=== PATIENT | female | born 1955 | race Caucasian/White ===

== ENCOUNTER → 2016-07-25 | Outpatient (CLI) | payer OTHER ==
[2015-03-24 18:00] VITALS: BP 126/71
[~2016-07-25] MED LIST: CALC-52 PO; LACT1CAP8 PO; LEVO150T PO; LUTE1CAP3 PO; MONT10TA6 PO; PROP120C3 PO; SERT100T PO
--- NOTE | 2016-07-25 12:12 | RAD ---
Renal ultrasound, 07/25/2016: History: Renal calculi with renal colic The right kidney measures 9.9 cm in length while the left kidney measures 11.6 cm there is no evidence of hydronephrosis. There is a small hyperechoic focus in the lateral aspect of left kidney measuring approximately 6 mm. This probably corresponds to the apparent tiny angiomyolipoma seen in the left kidney on the 05/05/2015 CT study. The renal parenchymal echogenicity is otherwise within normal limits. No definite renal calculi are seen. The bladder was not adequately visualized due to the patient having recently voided. IMPRESSION: 1. 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 2. The kidneys are otherwise unremarkable.
--- NOTE | 2016-07-25 12:36 | RAD ---
KUB, 07/25/2016: History: Hematuria There is a large amount of stool scattered throughout the colon. The abdominal gas pattern is otherwise unremarkable. The renal regions are obscured by this bowel content. The right renal region opacity seen on 12/01/2015 is not currently visible. Numerous lower pelvic calcifications are probably phleboliths. There is no evidence of organomegaly. IMPRESSION: 1. Increased stool throughout the colon. 2. The abdomen is otherwise unremarkable.
== END | disposition home or self-care (01) ==
LOC: RAD 12:55
PROVIDERS: ATTEND Urology
DX: N20.0 Calculus of kidney (principal); R31.9 Hematuria, unspecified
CPT/HCPCS: 74000; 76770

== ENCOUNTER 2016-10-28 09:53 | Emergency (ER) | payer OTHER ==
[2016-10-28 09:59] VITALS: BP 138/64
[2016-10-28 10:20] LABS: BILIRUBIN,URINE NEGATIVE (NEG); GLUCOSE,URINE NEGATIVE (NEG); NITRITE,URINE NEGATIVE (NEG); PH,URINE 6.5; PROTEIN,URINE NEGATIVE (NEG-TRACE); UROBILINOGEN,URINE 0.2 mg/dL (0.2 mg/dL)
--- NOTE | 2016-10-28 10:22 | PHYS DOC ---
Past Medical History Past Medical History: Arthritis, Hypothyroid, Kidney Stone Past Surgical History: Hysterectomy Additional Past Surgical Histo: thyroidectomy, perirectal abcess Alcohol Use: None Drug Use: None Adult General Chief Complaint Chief Complaint: OTHER COMPLAINTS [facility] HPI Patient is a 61 year old female presents emergency department stating that she is having urinary frequency and incontinence of urine for the last few days. She states the last time this occurred was after she had passed kidney stones. Patient states she started herself on Cipro in which she only had approximately 2-3 days worth. She denies fever, chills or any nausea or vomiting. Patient denies any abdominal pain or discomfort. Review of Systems Review of Systems Constitutional: Denies fever or chills [] Eyes: Denies change in visual acuity, redness, or eye pain [] HENT: Denies nasal congestion or sore throat [] Respiratory: Denies cough or shortness of breath [] Cardiovascular: No additional information not addressed in HPI [] GI: Denies abdominal pain, nausea, vomiting, bloody stools or diarrhea [] : dysuria denies hematuria [] Musculoskeletal: Denies back pain or joint pain [] Integument: Denies rash or skin lesions [] Neurologic: Denies headache, focal weakness or sensory changes [] Endocrine: Denies polyuria or polydipsia [] Allergies Allergies Allergies Coded Allergies Type Severity Reaction Last Updated Verified butorphanol Allergy Intermediate HALLUCINATIONS 11/20/13 Yes hydrocodone Allergy Intermediate Rash 03/24/15 Yes misoprostol Allergy Intermediate Unknown 11/20/13 Yes Physical Exam Physical Exam Constitutional: Well developed, well nourished, no acute distress, non-toxic appearance. [] HENT: Normocephalic, atraumatic, bilateral external ears normal, oropharynx moist, no oral exudates, nose normal. [] Eyes: PERRLA, EOMI, conjunctiva normal, no discharge. [] Neck: Normal range of motion, no tenderness, supple, no stridor. [] Cardiovascular:Heart rate regular rhythm, no murmur [] Lungs & Thorax: Bilateral breath sounds clear to auscultation [] Abdomen: Bowel sounds normal, soft, no tenderness, no masses, no pulsatile masses. [] Skin: Warm, dry, no erythema, no rash. [] Back: No tenderness, no CVA tenderness. [] Extremities: No tenderness, no cyanosis, no clubbing, ROM intact, no edema. [] Neurologic: Alert and oriented X 3, normal motor function, normal sensory function, no focal deficits noted. [] Psychologic: Affect normal, judgement normal, mood normal. [] Current Patient Data Vital Signs Vital Signs Date Time Temp Pulse Resp B/P (MAP) Pulse Ox O2 Delivery O2 Flow Rate FiO2 10/28/16 09:59 97.8 62 18 97 Room Air 97.8 Lab Values Laboratory Tests Test 10/28/16 10:00 Urine Collection Type Unknown Urine Color Yellow Urine Clarity Clear Urine pH 6.5 Urine Specific [place] 1.015 Urine Protein Negative mg/dL (NEG-TRACE) Urine Glucose (UA) Negative mg/dL (NEG) Urine Ketones (Stick) Negative mg/dL (NEG) Urine Blood Negative (NEG) Urine Nitrite Negative (NEG) Urine Bilirubin Negative (NEG) Urine Urobilinogen Dipstick 0.2 mg/dL (0.2 mg/dL) Urine Leukocyte Esterase Small (NEG) Urine RBC 0 /HPF (0-2) Urine WBC 0 /HPF (0-4) Urine Squamous Epithelial Cells Few /LPF Urine Bacteria 0 /HPF (0-FEW) EKG EKG [] Radiology/Procedures Radiology/Procedures [] Course & Med Decision Making Course & Med Decision Making Pertinent Labs and Imaging studies reviewed. (See chart for details) Patient's urine was positive for leukocyte Estrace. Patient has however started on Cipro will continue with the Cipro for the next 5 days. We'll recommend that she follow up with urology due to incontinent of urine. Recommended plenty of fluids such as water and cranberry juice. Avoid cranberry juice cocktail carbonate beverages citrus fruits and alcohol sees her considered irritants to the bladder. Patient will be discharged home in stable condition signs and symptoms to return back to emergency department been provided. [] Dragon Disclaimer Dragon Disclaimer This electronic medical record was generated, in whole or in part, using a voice recognition dictation system. Departure Departure Impression: Primary Impression: Urinary frequency Additional Impression: Incontinence in female Disposition: 01 HOME, SELF-CARE Condition: STABLE Referrals: TAWANA COOMBS MD (PCP) Patient Instructions: Urinary Frequency, Urinary Incontinence-Brief Additional Instructions: Activity as tolerated Medication as prescribed Drink plenty of fluids such as water and cranberry juice Avoid cranberry juice cocktail, carbonated beverages, citrus fruits, caffeine and alcohol as these are considered irritants to the bladder. Followup with urology in 3-5 days Return to emergency department as needed for signs and symptoms that become worse. Scripts Ciprofloxacin Hcl (CIPRO) 500 Mg Tablet 1 TAB PO BID, #10 TAB Prov: MODESTO ZABALA APRN 10/28/16 Problem Qualifiers MODESTO ZABALA APRN Oct 28, 2016 10:21
[2016-10-28 10:36] LABS: BACTERIA,URINE 0 /HPF (0-FEW); RBC,URINE 0 /HPF (0-2); SQUAMOUS EPITHELIAL CELL,UR FEW /LPF; WBC,URINE 0 /HPF (0-4)
[2016-10-28] MEDS ORDERED: CIPR500T94 PO (10:44)
== END 2016-10-28 10:50 | disposition home or self-care (01) ==
LOC: ER 09:53
DX: R35.0 Frequency of micturition (principal); R32 Unspecified urinary incontinence; E03.9 Hypothyroidism, unspecified; Z87.442 Personal history of urinary calculi; Z88.5 Allergy status to narcotic agent; Z88.8 Allergy status to other drugs, medicaments and biological substances
CPT/HCPCS: 81001; 87086; 99284

== ENCOUNTER → 2017-01-17 | Outpatient (CLI) | payer OTHER ==
[~2017-01-17] MED LIST changes: +CIPR500T94 PO
[2017-01-17 09:30] LABS: ALBUMIN 3.6 g/dL (3.4-5.0); CALCIUM 9.3 mg/dL (8.5-10.1); CREATININE 0.9 mg/dL (0.6-1.0); GFR 63.7; POTASSIUM 4.3 mmol/L (3.5-5.1); TOTAL BILIRUBIN 0.5 mg/dL (0.2-1.0); TOTAL PROTEIN 7.3 g/dL (6.4-8.2)
[2017-01-17 09:31] LABS: CHOLESTEROL/HDL RATIO 3.3
== END | disposition home or self-care (01) ==
LOC: LAB 08:57
PROVIDERS: ATTEND Family Medicine
DX: E03.8 Other specified hypothyroidism (principal); E78.5 Hyperlipidemia, unspecified; R73.01 Impaired fasting glucose
CPT/HCPCS: 36415; 80053; 80061; 83036; 84443

== ENCOUNTER → 2017-04-02 | Outpatient (CLI) | payer OTHER | END | disposition home or self-care (01) | LOC: MRI 08:18 | DX: M65.4 Radial styloid tenosynovitis [de Quervain] (principal); M25.532 Pain in left wrist | CPT/HCPCS: 73221 ==

== ENCOUNTER → 2017-04-05 | Outpatient (CLI) | payer OTHER | END | disposition home or self-care (01) | LOC: KCIC MAMMO 08:21 | DX: Z12.31 Encounter for screening mammogram for malignant neoplasm of breast (principal) | CPT/HCPCS: 77063; 77067 ==

== ENCOUNTER → 2017-06-24 | Outpatient (CLI) | payer OTHER | END | disposition home or self-care (01) | LOC: US 15:29 | DX: E06.3 Autoimmune thyroiditis (principal) | CPT/HCPCS: 76536 ==

== ENCOUNTER → 2017-07-01 | Outpatient (CLI) | payer OTHER ==
[2017-07-01 18:34] LABS: THYROID STIM HORMONE (TSH) 0.265 uIU/mL (0.358-3.74)
[2017-07-02 11:30] LABS: FREE T4 1.47 ng/dL (0.76-1.46)
== END | disposition home or self-care (01) ==
LOC: LAB 13:57
DX: E03.9 Hypothyroidism, unspecified (principal)
CPT/HCPCS: 36415; 84439; 84443

== ENCOUNTER → 2017-08-01 | Outpatient (CLI) | payer OTHER ==
[2017-08-02 13:04] LABS: MICROALBUMIN, RANDOM URINE 16.4 ug/mL (Not Estab.)
== END | disposition home or self-care (01) ==
LOC: LAB 09:29
DX: E11.9 Type 2 diabetes mellitus without complications (principal); E78.5 Hyperlipidemia, unspecified; E03.9 Hypothyroidism, unspecified
CPT/HCPCS: 82043

== ENCOUNTER → 2017-10-25 | Day surgery (SDC) | payer OTHER ==
[~2017-10-25] MED LIST changes: -CALC-52 PO; -CIPR500T94 PO; -LACT1CAP8 PO; -LEVO150T PO; +LIDOCAINE 1% PF 2 ML VIAL. ID; +LIDOCAINE 2% PF Vial for OR 5 ML VIAL.; -LUTE1CAP3 PO; -MONT10TA6 PO; +PROCHLORPERAZINE 10 MG/2 ML VIAL. IV; -PROP120C3 PO; +PROPOFOL 40 ML IV; -SERT100T PO; +fentaNYL PF VIAL 100 MCG/2 ML VIAL IV
[2017-10-25] MEDS: IV RINGERS,LACTATED 1000ML 1,000 ML IV (06:46)
== END | disposition home or self-care (01) ==
LOC: ENDOS 06:09
DX: Z12.11 Encounter for screening for malignant neoplasm of colon (principal); K57.30 Diverticulosis of large intestine without perforation or abscess without bleeding; K64.0 First degree hemorrhoids; Z86.010 Personal history of colon polyps; I10 Essential (primary) hypertension; E78.5 Hyperlipidemia, unspecified; E11.9 Type 2 diabetes mellitus without complications; Z88.5 Allergy status to narcotic agent; Z88.8 Allergy status to other drugs, medicaments and biological substances; Z79.84 Long term (current) use of oral hypoglycemic drugs; Z79.899 Other long term (current) drug therapy; E89.0 Postprocedural hypothyroidism; Z90.710 Acquired absence of both cervix and uterus; J45.909 Unspecified asthma, uncomplicated; Z87.442 Personal history of urinary calculi; M19.90 Unspecified osteoarthritis, unspecified site; Z98.890 Other specified postprocedural states; Z83.71 Family history of colonic polyps; Z80.0 Family history of malignant neoplasm of digestive organs
CPT/HCPCS: 45378; J2001; J2704

== ENCOUNTER → 2018-07-17 | Outpatient (CLI) | payer OTHER ==
[2017-10-25 08:15] VITALS: BP 123/74
[~2018-07-17] MED LIST changes: +ATOR40TA59 PO; +CALC-52 PO; +CELE200C PO; +CIPR500T94 PO; +LACT1CAP8 PO; +LEVO150T PO; -LIDOCAINE 1% PF 2 ML VIAL. ID; -LIDOCAINE 2% PF Vial for OR 5 ML VIAL.; +LUTE1CAP3 PO; +METF500T16 PO; +MONT10TA6 PO; -PROCHLORPERAZINE 10 MG/2 ML VIAL. IV; +PROP120C3 PO; -PROPOFOL 40 ML IV; +SERT100T PO; -fentaNYL PF VIAL 100 MCG/2 ML VIAL IV
--- NOTE | 2018-07-17 14:35 | RAD ---
DATE: 07/17/2018 EXAM: MAMMO ADRIAN SCREENING BILATERAL HISTORY: Routine screening COMPARISON: 04/05/2017 This study was interpreted with the benefit of Computerized Aided Detection (CAD). Breast Density: HETERO The breast parenchyma is heterogenously dense, which could reduce sensitivity of mammography. Breast parenchyma level C. FINDINGS: 2-D and 3-D tomosynthesis imaging was performed in CC and MLO projections. A rounded nodule in the lateral aspect of the right breast is unchanged. No new or enlarging breast densities are seen. Benign type calcifications are present. No suspicious microcalcifications have developed. IMPRESSION: Stable mammograms without evidence of malignancy. BI-RADS CATEGORY: 2 BENIGN FINDING(S) RECOMMENDED FOLLOW-UP: 12M 12 MONTH FOLLOW-UP PQRS compliance statement: Patient information was entered into a reminder system with a target due date for the next mammogram. Mammography is a sensitive method for finding small breast cancers, but it does not detect them all and is not a substitute for careful clinical examination. A negative mammogram does not negate a clinically suspicious finding and should not result in delay in biopsying a clinically suspicious abnormality. "Our facility is accredited by the [employer] Mammography Program."
== END | disposition home or self-care (01) ==
LOC: MAMMO 10:22
PROVIDERS: ATTEND Family Medicine
DX: Z12.31 Encounter for screening mammogram for malignant neoplasm of breast (principal); N63.10 Unspecified lump in the right breast, unspecified quadrant
CPT/HCPCS: 77063; 77067

== ENCOUNTER → 2018-11-05 | Outpatient (CLI) | payer OTHER ==
[2017-10-25 08:15] VITALS: BP 123/74
[~2018-11-05] MED LIST changes: +MONT10TA49 PO; -MONT10TA6 PO
[2018-11-05 09:14] LABS: BASO % 1 % (0-3); EOS # 0.2 x10^3/uL (0.0-0.7); EOS % 2 % (0-3); HEMOGLOBIN 13.5 g/dL (12.0-15.5); LYMPH # 1.9 x10^3/uL (1.0-4.8); LYMPH % 27 % (24-48); MEAN CORPUSCULAR HEMOGLOBIN 31 pg (25-35); MEAN CORPUSCULAR HGB CONC 34 g/dL (31-37); MEAN CORPUSCULAR VOLUME 91 fL (79-100); MONO # 0.7 x10^3/uL (0.0-1.1); MONO % 9 % (0-9); NEUT # 4.3 x10^3/uL (1.8-7.7); NEUT % 61 % (31-73); PLATELET COUNT 232 x10^3/uL (140-400); RED BLOOD COUNT 4.39 x10^6/uL (3.50-5.40); RED CELL DISTRIBUTION WIDTH 16.5 % (11.5-14.5)
[2018-11-05 09:40] LABS: ALBUMIN 3.7 g/dL (3.4-5.0); CALCIUM 8.8 mg/dL (8.5-10.1); CREATININE 0.8 mg/dL (0.6-1.0); GFR 72.4; POTASSIUM 4.1 mmol/L (3.5-5.1); TOTAL BILIRUBIN 0.6 mg/dL (0.2-1.0); TOTAL PROTEIN 7.3 g/dL (6.4-8.2)
[2018-11-05 09:47] LABS: CHOLESTEROL/HDL RATIO 1.5
[2018-11-05 09:52] LABS: FREE T4 1.48 ng/dL (0.76-1.46); THYROID STIM HORMONE (TSH) 1.071 uIU/mL (0.358-3.74)
[2018-11-05 19:19] LABS: MICRO CREAT RATIO <4.3 mg/g creat (0.0-30.0); MICROALB RD UR <3.0 ug/mL (Not Estab.)
[2018-11-06 00:07] LABS: HEMOGLOBIN A1C 6.2 % (4.8-5.6)
== END | disposition home or self-care (01) ==
LOC: LAB 08:18
PROVIDERS: ATTEND Family Medicine
DX: E11.9 Type 2 diabetes mellitus without complications (principal); E78.5 Hyperlipidemia, unspecified; E03.8 Other specified hypothyroidism
CPT/HCPCS: 36415; 80053; 80061; 82043; 82570; 83036; 84439; 84443; 85025

== ENCOUNTER 2019-07-20 09:31 | Emergency (ER) | payer OTHER ==
[~2019-07-20] VITALS: Ht 162.6 cm; Wt 100.0 kg
[2019-07-20 09:40] VITALS: BP 148/72
[2019-07-20 10:14] LABS: BILIRUBIN,URINE NEGATIVE (NEG); CLARITY,URINE CLEAR; COLOR,URINE YELLOW; NITRITE,URINE NEGATIVE (NEG); PROTEIN,URINE NEGATIVE (NEG-TRACE); UROBILINOGEN,URINE 0.2 mg/dL (0.2 mg/dL)
[2019-07-20 10:23] LABS: BACTERIA,URINE 0 /HPF (0-FEW); RBC,URINE 0 /HPF (0-2); SQUAMOUS EPITHELIAL CELL,UR FEW /LPF; WBC,URINE 0 /HPF (0-4)
[2019-07-20] MEDS ORDERED: RIZA10TA PO (10:23)
[2019-07-20] MEDS ORDERED: LEVO500T59 PO (11:02)
--- NOTE | 2019-07-20 11:02 | PHYS DOC ---
Past Medical History Past Medical History: Arthritis, Hypothyroid, Kidney Stone, Migraines Past Surgical History: Hysterectomy Additional Past Surgical Histo: thyroidectomy, perirectal abcess Smoking Status: Never Smoker Alcohol Use: Rarely Drug Use: None General Adult EDM: Chief Complaint: FLANK PAIN HPI: HPI: Patient is a 63 year old female who presented to ER today for evaluation of frequent urination for 3 days. Patient had some left elbow Levaquin so she took 2 doses already. Today she still have the cramping in her back and the frequent urination so she came in for evaluation. Patient denies any fever, no abdominal pain, no nausea vomiting. Patient denies any blood in her urine. Patient did not want anything done except to check her urine and give her a prescription for some antibiotic. Review of Systems: Review of Systems: Constitutional: Denies fever or chills. [] Eyes: Denies change in visual acuity. [] HENT: Denies nasal congestion or sore throat. [] Respiratory: Denies cough or shortness of breath. [] Cardiovascular: Denies chest pain or edema. [] GI: Denies abdominal pain, nausea, vomiting, bloody stools or diarrhea. [] : Denies dysuria, positive for frequency. Musculoskeletal: Denies back pain or joint pain. [] Integument: Denies rash. [] Neurologic: Denies headache, focal weakness or sensory changes. [] Endocrine: Denies polyuria or polydipsia. [] Lymphatic: Denies swollen glands. [] Psychiatric: Denies depression or anxiety. [] Heart Score: Risk Factors: Risk Factors: DM, Current or recent (<one month) smoker, HTN, HLP, family history of CAD, obesity. Risk Scores: Score 0 - 3: 2.5% MACE over next 6 weeks - Discharge Home Score 4 - 6: 20.3% MACE over next 6 weeks - Admit for Clinical Observation Score 7 - 10: 72.7% MACE over next 6 weeks - Early Invasive Strategies Allergies: Allergies: Allergies Coded Allergies Type Severity Reaction Last Updated Verified bromfenac Allergy Intermediate rash 07/20/19 Yes butorphanol Allergy Intermediate HALLUCINATIONS 10/25/17 Yes hydrocodone Allergy Intermediate Rash 10/25/17 Yes misoprostol Allergy Intermediate Unknown 10/25/17 Yes Physical Exam: PE: Constitutional: Well developed, well nourished, no acute distress, non-toxic appearance. [] HENT: Normocephalic, atraumatic, bilateral external ears normal, oropharynx moist, no oral exudates, nose normal. [] Eyes: PERRLA, EOMI, conjunctiva normal, no discharge. [] Neck: Normal range of motion, no tenderness, supple, no stridor. [] Cardiovascular:Heart rate regular rhythm, no murmur [] Lungs & Thorax: Bilateral breath sounds clear to auscultation [] Abdomen: Bowel sounds normal, soft, no tenderness, no masses, no pulsatile masses. [] Skin: Warm, dry, no erythema, no rash. [] Back: No tenderness, no CVA tenderness. [] Extremities: No tenderness, no cyanosis, no clubbing, ROM intact, no edema. [] Neurologic: Alert and oriented X 3, normal motor function, normal sensory function, no focal deficits noted. [] Psychologic: Affect normal, judgement normal, mood normal. [] Current Patient Data: Labs: Laboratory Tests Test 07/20/19 09:50 Urine Collection Type Unknown Urine Color Yellow Urine Clarity Clear Urine pH 6.0 (<5.0-8.0) Urine Specific [place] 1.020 (1.000-1.030) Urine Protein Negative mg/dL (NEG-TRACE) Urine Glucose (UA) Negative mg/dL (NEG) Urine Ketones (Stick) Negative mg/dL (NEG) Urine Blood Negative (NEG) Urine Nitrite Negative (NEG) Urine Bilirubin Negative (NEG) Urine Urobilinogen Dipstick 0.2 mg/dL (0.2 mg/dL) Urine Leukocyte Esterase Negative (NEG) Urine RBC 0 /HPF (0-2) Urine WBC 0 /HPF (0-4) Urine Squamous Epithelial Cells Few /LPF Urine Bacteria 0 /HPF (0-FEW) Urine Mucus Slight /LPF Vital Signs: Vital Signs Date Time Temp Pulse Resp B/P (MAP) Pulse Ox O2 Delivery O2 Flow Rate FiO2 07/20/19 09:40 97.9 60 20 148/72 (97) 98 Room Air 97.9 EKG: EKG: [] Radiology/Procedures: Radiology/Procedures: [] Course & Med Decision Making: Course & Med Decision Making Pertinent Labs and Imaging studies reviewed. (See chart for details) [] Dragon Disclaimer: Dragon Disclaimer: This electronic medical record was generated, in whole or in part, using a voice recognition dictation system. Departure Departure Impression: Primary Impression: Dysuria Disposition: HOME, SELF-CARE Condition: STABLE Referrals: MARIANA ALICEA MD (PCP) FOLLOW UP WITH YOUR DOCTOR NEEDED Patient Instructions: Dysuria Scripts Levofloxacin (LEVAQUIN) 500 Mg Tablet 500 MG PO DAILY for 7 Days, #7 TAB Prov: JEF GARCIA DO 07/20/19 JEF GARCIA DO Jul 20, 2019 11:02
== END 2019-07-20 10:50 | disposition home or self-care (01) ==
LOC: ER 09:31
DX: R30.0 Dysuria (principal); R25.2 Cramp and spasm; M19.90 Unspecified osteoarthritis, unspecified site; E03.9 Hypothyroidism, unspecified; G43.909 Migraine, unspecified, not intractable, without status migrainosus; Z90.710 Acquired absence of both cervix and uterus; Z90.89 Acquired absence of other organs; Z98.890 Other specified postprocedural states; Z87.442 Personal history of urinary calculi; Z88.5 Allergy status to narcotic agent; Z88.8 Allergy status to other drugs, medicaments and biological substances; Z88.6 Allergy status to analgesic agent
CPT/HCPCS: 81001; 99283

== ENCOUNTER → 2019-10-19 | Outpatient (CLI) | payer OTHER ==
[~2019-10-19] MED LIST changes: +LEVO500T59 PO; +RIZA10TA PO
[2019-10-19 10:45] LABS: BASO % 1 % (0-3); EOS # 0.1 x10^3/uL (0.0-0.7); EOS % 2 % (0-3); HEMATOCRIT 39.4 % (36.0-47.0); HEMOGLOBIN 13.2 g/dL (12.0-15.5); LYMPH # 1.6 x10^3/uL (1.0-4.8); LYMPH % 26 % (24-48); MEAN CORPUSCULAR HEMOGLOBIN 31 pg (25-35); MEAN CORPUSCULAR HGB CONC 34 g/dL (31-37); MEAN CORPUSCULAR VOLUME 91 fL (79-100); MONO # 0.6 x10^3/uL (0.0-1.1); MONO % 9 % (0-9); NEUT # 3.7 x10^3/uL (1.8-7.7); NEUT % 61 % (31-73); PLATELET COUNT 231 x10^3/uL (140-400); RED BLOOD COUNT 4.33 x10^6/uL (3.50-5.40); RED CELL DISTRIBUTION WIDTH 16.9 % (11.5-14.5)
[2019-10-19 11:19] LABS: ALBUMIN 3.6 g/dL (3.4-5.0); ALBUMIN/GLOBULIN RATIO 1.2 (1.0-1.7); CALCIUM 8.5 mg/dL (8.5-10.1); CHOLESTEROL/HDL RATIO 1.7; CREATININE 0.9 mg/dL (0.6-1.0); POTASSIUM 4.4 mmol/L (3.5-5.1); TOTAL BILIRUBIN 0.4 mg/dL (0.2-1.0); TOTAL PROTEIN 6.6 g/dL (6.4-8.2)
[2019-10-19 11:27] LABS: FREE T4 1.66 ng/dL (0.76-1.46); THYROID STIM HORMONE (TSH) 0.557 uIU/mL (0.358-3.74)
[2019-10-20 01:08] LABS: HEMOGLOBIN A1C 6.3 % (4.8-5.6)
== END | disposition home or self-care (01) ==
LOC: LAB 07:20
PROVIDERS: ATTEND Family Medicine
DX: E11.9 Type 2 diabetes mellitus without complications (principal); E78.5 Hyperlipidemia, unspecified; E03.9 Hypothyroidism, unspecified
CPT/HCPCS: 36415; 80053; 80061; 82043; 82570; 83036; 83721; 84439; 84443; 85025

== ENCOUNTER → 2019-10-19 | Outpatient (CLI) | payer OTHER ==
--- NOTE | 2019-10-19 16:06 | RAD ---
EXAM: BILATERAL DIGITAL 3D SCREENING MAMMOGRAPHY. HISTORY: Routine mammographic screening. TECHNIQUE: Bilateral digital 3D and tomographic images were obtained in CC and MLO projections. Computer-aided detection was applied. COMPARISON: 07/17/2018, 04/05/2017. COMPOSITION: C. The breasts are heterogeneously dense, which may obscure small masses. FINDINGS: There are no suspicious masses, microcalcifications or architectural distortion. The parenchymal pattern is stable. Nodules superolaterally on the right and superiorly on the left are stable. Scattered calcifications are benign. BI-RADS CATEGORY 2: Benign. RECOMMENDATION: 1. Routine screening mammography in one year. If mammography demonstrates dense breast tissue (heterogenously dense or extremely dense, category C or D), which could hide abnormalities, and if other risk factors for breast cancer have been identified, supplemental screening tests that may be suggested by the ordering physician may be of benefit. Dense breast tissue, in and of itself, is a relatively common condition. Therefore, this information is not provided to cause undue concern, but rather to raise awareness and to promote discussion with the referring physician regarding the presence of other risk factors, in addition to dense breast tissue. The results of this mammography examination is provided to the patient and referring physician. The patient should contact their referring physician if any questions or concerns exist regarding this report. PQRS compliance statement - Patient information was entered into a reminder system with a target due date for the next mammogram. "Our facility is accredited by the [employer] Mammography Program." Electronically signed by: Karine Hensley MD (10/19/2019 4:02 PM) [id number]
== END | disposition home or self-care (01) ==
LOC: MAMMO 13:35
PROVIDERS: ATTEND Family Medicine
DX: Z12.31 Encounter for screening mammogram for malignant neoplasm of breast (principal); N64.89 Other specified disorders of breast
CPT/HCPCS: 77063; 77067

== ENCOUNTER → 2020-09-08 | Outpatient (CLI) | payer OTHER | LOC: SPEC 11:38 | PROVIDERS: ATTEND Nurse Practitioner Gerontology | DX: R31.9 Hematuria, unspecified (principal) | CPT/HCPCS: 87086 ==

== ENCOUNTER → 2020-09-09 | Outpatient (CLI) | payer OTHER ==
[2020-09-09 08:46] LABS: BASO % 1 % (0-3); EOS # 0.2 x10^3/uL (0.0-0.7); EOS % 2 % (0-3); HEMATOCRIT 38.5 % (36.0-47.0); HEMOGLOBIN 13.1 g/dL (12.0-15.5); LYMPH # 1.5 x10^3/uL (1.0-4.8); LYMPH % 21 % (24-48); MEAN CORPUSCULAR HEMOGLOBIN 32 pg (25-35); MEAN CORPUSCULAR HGB CONC 34 g/dL (31-37); MEAN CORPUSCULAR VOLUME 93 fL (79-100); MONO # 0.8 x10^3/uL (0.0-1.1); MONO % 11 % (0-9); NEUT # 4.4 x10^3/uL (1.8-7.7); NEUT % 65 % (31-73); PLATELET COUNT 227 x10^3/uL (140-400); RED BLOOD COUNT 4.14 x10^6/uL (3.50-5.40); WHITE BLOOD COUNT 6.9 x10^3/uL (4.0-11.0)
[2020-09-09 09:01] LABS: ALBUMIN 3.7 g/dL (3.4-5.0); ALBUMIN/GLOBULIN RATIO 1.2 (1.0-1.7); CALCIUM 8.6 mg/dL (8.5-10.1); CREATININE 0.9 mg/dL (0.6-1.0); TOTAL PROTEIN 6.7 g/dL (6.4-8.2)
[2020-09-09 09:02] LABS: POTASSIUM 4.5 mmol/L (3.5-5.1); TOTAL BILIRUBIN 0.4 mg/dL (0.2-1.0)
--- NOTE | 2020-09-09 09:07 | RAD ---
Study: CT abdomen/pelvis without intravenous contrast Indication: Hematuria. History of kidney stones. Comparison: Most recent CT abdomen/pelvis 05/05/2015 Technique: Helical CT imaging performed of the abdomen and pelvis without the use of intravenous cont rast. Sagittal and coronal reformats were obtained. One or more of the following individualized dose reduction techniques were utilized for this examinat ion: 1. Automated exposure control 2. Adjustment of the mA and/or kV according to patient size 3. Use of iterative reconstruction technique. Findings: Inherently limited evaluation without intravenous contrast. Chest: Small hiatal hernia. Right lower lobe pulmonary nodule on image 12 series 2 measuring 3.5 mm. This has decreased in size from the 2016 comparison. Liver: Unremarkable. Gallbladder/Biliary Tree: Unremarkable. Pancreas: Unremarkable. Spleen: Within normal limits for size. Adrenal Glands: No adrenal gland mass. Kidneys/Ureters/Bladder: Two small fat containing foci on the left. No complex cyst or mass is identi fied. No nephrolithiasis within the right renal pelvis measuring up to 5 mm. Minimal prominence of th e surrounding renal pelvis and there is no caliectasis.. No stone or collecting system dilatation on the left. Unremarkable urinary bladder. Reproductive Organs: Absent uterus. Unremarkable adnexa. Colon: Colonic diverticuli without diverticulitis. Mild volume colonic stool burden. Appendix: Normal. Small Bowel: Nonobstructed. Stomach: Unremarkable. Vasculature: Nonaneurysmal aorta. Lymph Nodes: Within normal limits. Peritoneum and Body Wall: No free fluid or pneumoperitoneum. Fat-containing ventral midline pelvic he rnia not significantly different from the prior. Bones: No acute or aggressive osseous process. Facet arthrosis mainly from L2-L3 through L5-S1. Mild arthrosis of both hips. Miscellaneous: None. Impression: 1. Solitary nephrolithiasis measuring 5 mm located within the right renal pelvis. Minimal prominence of the renal pelvis but there is no caliectasis to suggest that the stone is causing obstruction. No stone or collecting system dilatation on the left. 2. Chronic observations detailed in the body of the report to include colonic diverticulosis. Electronically signed by: JOSE GARCIA MD (09/09/2020 9:05 AM) [facility]
== END ==
LOC: CT 08:13
PROVIDERS: ATTEND Nurse Practitioner Gerontology
DX: K57.32 Diverticulitis of large intestine without perforation or abscess without bleeding (principal); R82.90 Unspecified abnormal findings in urine; R31.9 Hematuria, unspecified
CPT/HCPCS: 36415; 74176; 80053; 85025

== ENCOUNTER → 2020-09-22 | Outpatient (CLI) | payer OTHER ==
--- NOTE | 2020-09-22 15:53 | RAD ---
EXAM: XR ABDOMEN 1V 09/22/2020 10:45 AM CLINICAL INDICATION: Kidney stone, blood in urine for history of right kidney stone COMPARISON: CT abdomen pelvis 09/09/2020 TECHNIQUE: AP supine view of the abdomen FINDINGS: There is a possible approximately 7 mm calculus in the region of the right renal pelvis, al though this could also be superimposed stool. No other evidence of urolithiasis. There are phlebolith s in the pelvis. Moderate volume of stool. IMPRESSION: Possible persistent calculus in the region of the right renal pelvis, although evaluatio n is limited due to overlying stool. Electronically signed by: Olga Graham MD (09/22/2020 3:51 PM) [id number]
== END ==
LOC: RAD 10:37
PROVIDERS: ATTEND Urology
DX: N20.0 Calculus of kidney (principal)
CPT/HCPCS: 74018

== ENCOUNTER → 2020-10-06 | Outpatient (CLI) | payer OTHER ==
--- NOTE | 2020-10-06 17:36 | RAD ---
XR ABDOMEN 1V History: Reason: CALCULUS OF KIDNEY / Spl. Instructions: / History: Technique: Supine view the abdomen. Comparison: September 09, 2020. Findings: No definite or nephrolithiasis when correlating with prior CT. Previously seen right ureteral calculu s is not definitely seen on radiographs. Phleboliths projecting over the pelvis. Mild small bowel gas . Air and stool scattered throughout the imaged colon. Impression: 1. No definite nephrolithiasis. Electronically signed by: Rupert Monzon DO (10/06/2020 5:33 PM) [id number]
== END ==
LOC: LAB 11:58
PROVIDERS: ATTEND Urology
DX: N20.0 Calculus of kidney (principal); I87.8 Other specified disorders of veins
CPT/HCPCS: 74018

== ENCOUNTER → 2020-10-16 | Outpatient (CLI) | payer OTHER ==
--- NOTE | 2020-10-17 10:50 | RAD ---
EXAM: XR ABDOMEN 1V 10/16/2020 11:15 AM CLINICAL INDICATION: Kidney stone follow-up COMPARISON: Abdominal radiograph 10/06/2020 TECHNIQUE: AP view of the abdomen FINDINGS: Bowel gas pattern is nonspecific and nonobstructive. Normal volume of stool. No definite u rolithiasis visualized. There are fluid within the pelvis. IMPRESSION: No definite urolithiasis visualized. Electronically signed by: Olga Graham MD (10/17/2020 10:48 AM) [id number]
== END ==
LOC: LAB 10:47
PROVIDERS: ATTEND Urology
DX: N20.0 Calculus of kidney (principal)
CPT/HCPCS: 74018; 82365

== ENCOUNTER → 2020-10-17 | Outpatient (CLI) | payer OTHER ==
--- NOTE | 2020-10-17 15:35 | RAD ---
Exam: CT abdomen/pelvis without contrast Indication: Ureteral calculus recent lithotripsy on the right side. Comparison: CT abdomen pelvis 09/09/2010 Technique: Helical CT imaging performed of the abdomen and pelvis without contrast. Sagittal and brenton nal reformats were obtained. One or more of the following individualized dose reduction techniques were utilized for this examinat ion: 1. Automated exposure control 2. Adjustment of the mA and/or kV according to patient size 3. Use of iterative reconstruction technique. Findings: Lower chest: Unchanged 3.5 mm pulmonary nodule in the right lower lobe, stable from 2016. Heart is no rmal in size. Liver: Unremarkable noncontrast appearance of the liver Gallbladder/Biliary Tree: Normal. Pancreas: Normal. Spleen: Normal. Adrenal Glands: Normal Kidneys/Ureters/Bladder: There is new moderate right hydronephrosis and hydroureter. The 5 mm calculu s at the right renal pelvis is no longer present but there is now a 3 mm calculus at the right ureter ovesicular junction. Mild right perinephric and periureteral fat stranding. Left kidney and ureter ar e normal. Bladder is normal. Reproductive Organs: Uterus is surgically absent. No adnexal mass. Stomach, small bowel, and colon: Stomach is normal. No small bowel obstruction. Appendix is normal. T here is mild sigmoid diverticulosis. The colon is otherwise normal. Vasculature: Abdominal aorta is normal in caliber. No calcified atherosclerosis. Lymph Nodes: No lymphadenopathy. Peritoneum and retroperitoneum: No free fluid or free air. Bones: No acute osseous abnormality. Minimal anterolisthesis of L4 on L5. There is advanced lower lum bar facet arthrosis. IMPRESSION: 1. New moderate right hydronephrosis and hydroureter. The calculus at the right renal pelvis is no l onger present but there is now a 3 mm calculus at the right ureterovesicular junction. 2. Mild sigmoid diverticulosis. Electronically signed by: Olga Graham MD (10/17/2020 3:32 PM) [id number]
== END ==
LOC: CT 09:41
PROVIDERS: ATTEND Urology
DX: N13.4 Hydroureter (principal); N20.1 Calculus of ureter; K57.30 Diverticulosis of large intestine without perforation or abscess without bleeding; N13.30 Unspecified hydronephrosis
CPT/HCPCS: 74176

== ENCOUNTER → 2020-12-08 | Outpatient (CLI) | payer OTHER ==
--- NOTE | 2020-12-09 18:59 | RAD ---
DATE: 12/08/2020 EXAM: MAMMO ADRIAN SCREENING BILATERAL HISTORY: Screening COMPARISON: Multiple prior exams dating back to 2009 This study was interpreted with the benefit of Computerized Aided Detection (CAD). Breast Density: HETERO The breast parenchyma is heterogenously dense, which could reduce sensitivity of mammography. Breast parenchyma level C. FINDINGS: A circumscribed mass in the upper outer right breast and focal asymmetries in the upper outer left breast are unchanged from 2010. No suspicious mass, suspicious calcification, or architectural distortion in either breast. IMPRESSION: No evidence of malignancy. BI-RADS CATEGORY: 2 BENIGN FINDING(S) RECOMMENDED FOLLOW-UP: 12M 12 MONTH FOLLOW-UP PQRS compliance statement: Patient information was entered into a reminder system with a target due date for the next mammogram. Mammography is a sensitive method for finding small breast cancers, but it does not detect them all and is not a substitute for careful clinical examination. A negative mammogram does not negate a clinically suspicious finding and should not result in delay in biopsying a clinically suspicious abnormality. "Our facility is accredited by the [employer] Mammography Program."
== END ==
LOC: MAMMO 09:38
PROVIDERS: ATTEND Family Medicine
DX: Z12.31 Encounter for screening mammogram for malignant neoplasm of breast (principal); N63.11 Unspecified lump in the right breast, upper outer quadrant
CPT/HCPCS: 77063; 77067

== ENCOUNTER → 2021-04-05 | Outpatient (CLI) | payer OTHER ==
[2021-04-05 08:45] LABS: BASO % 1 % (0-3); EOS # 0.2 x10^3/uL (0.0-0.7); EOS % 3 % (0-3); HEMATOCRIT 38.6 % (36.0-47.0); HEMOGLOBIN 12.8 g/dL (12.0-15.5); LYMPH # 1.3 x10^3/uL (1.0-4.8); LYMPH % 24 % (24-48); MEAN CORPUSCULAR HEMOGLOBIN 31 pg (25-35); MEAN CORPUSCULAR HGB CONC 33 g/dL (31-37); MEAN CORPUSCULAR VOLUME 94 fL (79-100); MONO # 0.6 x10^3/uL (0.0-1.1); MONO % 10 % (0-9); NEUT # 3.5 x10^3/uL (1.8-7.7); NEUT % 63 % (31-73); PLATELET COUNT 214 x10^3/uL (140-400); WHITE BLOOD COUNT 5.6 x10^3/uL (4.0-11.0)
[2021-04-05 09:00] LABS: ALBUMIN 3.5 g/dL (3.4-5.0); ALBUMIN/GLOBULIN RATIO 1.1 (1.0-1.7); CREATININE 0.8 mg/dL (0.6-1.0); POTASSIUM 4.2 mmol/L (3.5-5.1); TOTAL BILIRUBIN 0.5 mg/dL (0.2-1.0); TOTAL PROTEIN 6.7 g/dL (6.4-8.2)
[2021-04-05 09:01] LABS: CHOLESTEROL/HDL RATIO 1.9
[2021-04-05 09:09] LABS: FREE T4 1.64 ng/dL (0.76-1.46); THYROID STIM HORMONE (TSH) 0.241 uIU/mL (0.358-3.74)
[2021-04-06 03:10] LABS: HEMOGLOBIN A1C 5.9 % (4.8-5.6)
== END ==
LOC: LAB 08:09
PROVIDERS: ATTEND Nurse Practitioner
DX: E11.9 Type 2 diabetes mellitus without complications (principal); E03.9 Hypothyroidism, unspecified; E78.5 Hyperlipidemia, unspecified
CPT/HCPCS: 36415; 80053; 80061; 83036; 84439; 84443; 85025

== ENCOUNTER → 2021-06-27 | Outpatient (CLI) | payer OTHER ==
[2021-06-27 17:04] LABS: FREE T4 1.35 ng/dL (0.76-1.46)
[2021-06-28 00:01] LABS: THYROID STIM HORMONE (TSH) 0.323 uIU/mL (0.358-3.74)
== END ==
LOC: LAB 15:25
PROVIDERS: ATTEND Family Medicine
DX: E03.8 Other specified hypothyroidism (principal)
CPT/HCPCS: 36415; 84439; 84443